=== PATIENT | female | born 1990 | race Caucasian/White ===

== ENCOUNTER 2017-05-17 12:16 | Inpatient (IN) ==
[~2017-05-17 12:16] MED LIST: BUTORPHANOL 2 MG/ML INJECTION IVP ONE
[2017-05-17] MEDS ORDERED: NICOTINE 7 MG PATCH TD PRN (12:48)
[2017-05-17] MEDS ORDERED: NICOTINE PATCH REMOVAL TD PRN (12:51)
[2017-05-17] MEDS ORDERED: DiphenhydrAMINE 25 MG CAPSULE PO PRN (13:13)
[2017-05-17] MEDS ORDERED: OXYTOCIN DRIP 30 UNIT/500 ML ML IV SCH (13:13)
[2017-05-17] MEDS ORDERED: HYDROCORTISONE 2.5% CREAM 30gm RECTALLY PRN (13:13)
[2017-05-17] MEDS ORDERED: ACETAMINOPHEN 500 MG TABLET PO PRN (13:13)
[2017-05-17] MEDS ORDERED: MAG-AL + SIM ORAL LIQUID 30ml PO PRN (13:13)
[2017-05-17] MEDS ORDERED: CALCIUM CARBONATE Chewable 500mg TABLET PO PRN (13:13)
--- NOTE | 2017-05-17 13:55 | Labor and Delivery Note ---
ATE 05/17/2017 Ms. Lainez is a G3, P2, although her records are not available to us right now. She delivered at home. EMS arrived shortly after delivery and brought her directly to [facility]. The placenta was still intact. Baby is being assessed by Dr. Jonas and is at this moment in special care nursery. Upon my evaluation, the placenta was near the introitus but had not yet delivered. Blood loss appeared to be grossly normal. The placenta delivered and there were a few clots. Afterward, total blood loss with the placenta appeared to be approximately 300 mL. Perineum was intact. There were bilateral superficial periurethral lacerations that were hemostatic and were not repaired. Vaginal sweep was performed. At the time of dictation, mother is stable and doing well. We have given her some IV Stadol to help and we will be receiving records as they are available. She received her care through [facility] with the first two babies so at least we will have some of those records available. Apparently had just established care with [facility] in [place] but may or may not have been seen yet , we are not sure about that. KHALIDA
[2017-05-17 14:05] VITALS: BMI 29.7
[2017-05-17] MEDS: ALBUTEROL 2.5mg/3ml (0.083%) NEB AEROSOL SCH ×2 (16:24→23:31)
[2017-05-17] MEDS: HYDROCODONE/APAP 5mg/325mg TABLET PO PRN (16:28)
[2017-05-17] MEDS: IBUPROFEN 800 MG TABLET PO PRN (16:28)
[2017-05-18] MEDS: IBUPROFEN 800 MG TABLET PO PRN ×2 (09:27→18:38)
[2017-05-18] MEDS: HYDROCODONE/APAP 5mg/325mg TABLET PO PRN ×3 (09:27→23:12)
[2017-05-18] MEDS: ALBUTEROL 2.5mg/3ml (0.083%) NEB AEROSOL SCH ×3 (10:05→23:26)
--- NOTE | 2017-05-18 10:35 | OB/GYN Progress Note ---
OB-PP Progress Note - General PPD1 - Subjective Date: 05/18/17 Lochia: Minimal Pain: controlled Voiding: voiding Nausea or Vomiting Present: No Subjective Comments: productive cough - Objective Vital Signs: Last Vital Signs Temp 97.1 F 05/18/17 07:10 Pulse 85 05/18/17 07:10 Resp 18 05/18/17 10:05 BP 122/62 05/18/17 07:10 Pulse Ox 98 05/18/17 10:05 Urine Output: good General: alert and oriented Extremities: non-tender Edema: none Laboratory: Laboratory Results - last 24 hr 05/17/17 13:52 WBC 13.9 H RBC 4.13 Hgb 11.2 L Hct 34.1 L MCV 82.6 MCH 27.1 MCHC 32.8 RDW Std Deviation 45.7 Plt Count 253 MPV 9.7 - Assessment Assessment: SP, - Plan Continue RT treatments Baby in SCN PN labs from [facility] have not arrived, will order
[2017-05-18] MEDS: DOCUSATE CALCIUM 240 MG CAPSULE PO SCH (14:45)
[2017-05-18] MEDS: PRENATAL VITAMIN TABLET PO SCH (14:45)
[2017-05-18] MEDS: FERROUS SULFATE 324 MG TABLET PO SCH (14:45)
[2017-05-18] MEDS: GUAIFENESIN/DM 5ml ORAL LIQUID PO PRN (18:43)
[2017-05-19] MEDS: GUAIFENESIN/DM 5ml ORAL LIQUID PO PRN ×2 (01:20→13:50)
[2017-05-19] MEDS: ALBUTEROL 2.5mg/3ml (0.083%) NEB AEROSOL SCH ×3 (08:54→15:54)
[2017-05-19 09:21] VITALS: BP 116/76; PULSE 80; TEMP 98.4
[2017-05-19 11:43] VITALS: O2SAT 94
[2017-05-19] MEDS: PRENATAL VITAMIN TABLET PO SCH (13:38)
[2017-05-19] MEDS: FERROUS SULFATE 324 MG TABLET PO SCH (13:38)
[2017-05-19] MEDS: DOCUSATE CALCIUM 240 MG CAPSULE PO SCH (13:38)
[2017-05-19] MEDS: IBUPROFEN 800 MG TABLET PO PRN (13:46)
[2017-05-19] MEDS: HYDROCODONE/APAP 5mg/325mg TABLET PO PRN ×2 (13:47→18:17)
[2017-05-19 16:04] VITALS: RESP 18
== END 2017-05-19 18:21 | disposition home or self-care (01) | DRG 769 ==
LOC: MC 12:16
PROVIDERS: ADMIT Obstetrics & Gynecology; ATTEND Obstetrics & Gynecology